=== PATIENT | female | born 1950 | race Caucasian/White ===

== ENCOUNTER 2016-08-31 12:53 | Outpatient (CLI) | payer MEDICARE ==
--- NOTE | 2016-09-01 18:31 | DIAGNOSTIC IMAGING REPORT ---
REFERRING PHYSICIAN/PROVIDER: Zully Santos MD CONSULTING BIOLOGY INSTRUCTOR: Yusuf Yanes MD INDICATION: LVH Procedure: A two-dimensional transthoracic echocardiogram with color flow and Doppler was performed. The study quality was technically adequate. The patient was in normal sinus rhythm during the exam. Left Ventricle: The left ventricle is normal in size. There is moderate proximal septal thickening noted. There is no echo evidence for significant left ventricular outflow tract obstruction. However it appears that Valsalva maneuver was not performed. Left ventricular systolic function is normal without focal wall motion abnormalities. The ejection fraction is estimated to be 65-70%. Diastolic function could not be accurately assessed due to confounding valvular disease. The pulmonary vein wave profile is normal. Right Ventricle: The right ventricle is normal in size and function. Atria: The left atrium is moderately dilated. The right atrium is mildly dilated. A patent foramen ovale is suspected. Consider agitated saline contrast study to further evaluate. Mitral Valve: There is moderate to severe mitral annular calcification. The mitral valve leaflets are moderately calcified. There is moderate calcification extending into the subvalvular apparatus. There is moderate mitral stenosis. The mitral valve mean gradient is 9.0 mmHg. There is trace mitral regurgitation. Aortic Valve: The aortic valve is mildly calcified. Leaflet mobility is mildly reduced. There is no hemodynamically significant valvular aortic stenosis. There is no aortic regurgitation. Tricuspid Valve: The tricuspid valve is normal in structure and function. There is trace tricuspid regurgitation. The right ventricular systolic pressure is estimated at 32 mmHg assuming a right atrial pressure of 3 mm Hg. Pulmonic Valve: The pulmonic valve is not well visualized. The pulmonic valve is not well seen, but is grossly normal. There is a trace or physiologic amount of pulmonic regurgitation. There is no other significant valvular heart disease. Great Vessels: The aortic root is normal size. The dimensions of the ascending aorta are normal. The IVC is of normal diameter and collapses greater than 50% with a sniff. This suggests a low right atrial pressure of 3 mm Hg. Pericardium/ Pleura There is no pericardial effusion. IMPRESSION: The left ventricle is normal in size. There is moderate proximal septal thickening noted. However it appears that Valsalva maneuver was not performed. Left ventricular systolic function is normal without focal wall motion abnormalities. The ejection fraction is estimated to be 65-70%. LVEF has not changed significantly since prior study on 10/17/2015. Diastolic function could not be accurately assessed due to confounding valvular disease. The right ventricle is normal in size and function. The right ventricular systolic pressure is estimated at 32 mmHg assuming a right atrial pressure of 3 mm Hg. Prior RVSP was 39 mmHg. The left atrium is moderately dilated. The right atrium is mildly dilated. A patent foramen ovale is suspected. However prior echo study showed no evidence for interatrial shunt by agitated saline contrast study. There is moderate to severe mitral annular calcification. The mitral valve leaflets are moderately calcified. There is moderate calcification extending into the subvalvular apparatus. There is moderate mitral stenosis. The mitral valve mean gradient is 9.0 mmHg. Previous mean gradient was 6.0 mmHg. The aortic valve is mildly calcified. Leaflet mobility is mildly reduced. There is no hemodynamically significant valvular aortic stenosis. There is no other significant valvular heart disease. The aortic root is normal size. Consider repeating a focus study to further evaluate for LVOT obstruction with Valsalva maneuver.
== END 2016-08-31 23:00 ==
LOC: US SRH 12:53
DX: I05.0 Rheumatic mitral stenosis (principal)